=== PATIENT | female | born 1990 | race African-American/Black ===

== ENCOUNTER 2017-06-19 20:19 | Emergency (ER) | payer SELFPAY ==
[~2017-06-19] VITALS: Ht 157.5 cm; Wt 93.0 kg
[~2017-06-19 20:19] MED LIST: ACYCLOVIR400 MG PO; AMOXICILLIN500 MG PO; CIPRO500 MG PO; COLACE100 MG PO; FERROUS SULF325 M1 PO; FLAGYL500 MG OR; FLAGYL500 MG PO; FLUZONE SPLT1 M1 IM; LORTAB 7.57.5 MG PO; MACRODANTIN100 MG OR; NAPROSYN500 MG PO; NO; NORCO1 TA1 PO; PHENERGAN25 MG/TAB PO; PRENATA3 OR; PRENATAL VIT1 TAB OR; PROCARDIA10 MG PO; RHO (D) IMMUN300 MCG IM; ROCEPHIN 2250 MG/VIA IM; TAM75CAP PO; TUBERSOL5 MG/0.1 M ID; ULTRAM50 M1 PO; ZITHROMAX500 MG PO; ZOFRAN4 MG/TAB PO
[2017-06-19] MEDS ORDERED: TESSALON PER100 MG PO (20:36)
[2017-06-19] MEDS ORDERED: AFRIN 12 HOUR0.05 % (20:36)
[2017-06-19 20:45] VITALS: BP 119/78
== END 2017-06-19 20:45 | disposition home or self-care (01) | DRG 153 ==
LOC: ED 20:19
DX: J06.9 Acute upper respiratory infection, unspecified (principal); J34.89 Other specified disorders of nose and nasal sinuses; R05 Cough; R09.81 Nasal congestion; R50.9 Fever, unspecified

== ENCOUNTER 2017-12-30 17:53 | Emergency (ER) | payer OTHER ==
[~2017-12-30] VITALS: Ht 157.5 cm; Wt 91.0 kg
[~2017-12-30 17:53] MED LIST changes: +AFRIN 12 HOUR0.05 %; +TESSALON PER100 MG PO
[2017-12-30] MEDS ORDERED: FIORICET PO (20:16)
[2017-12-30 20:19] VITALS: BP 109/71
== END 2017-12-30 20:25 | disposition home or self-care (01) | DRG 103 ==
LOC: ED 17:53
DX: R51 Headache (principal)

== ENCOUNTER 2018-09-22 11:35 | Emergency (ER) | payer OTHER ==
[~2018-09-22] VITALS: Ht 157.5 cm; Wt 88.0 kg
[~2018-09-22 11:35] MED LIST changes: +FIORICET PO
[2018-09-22] MEDS ORDERED: MUSCLE RELAXER (11:46)
[2018-09-22 13:09] VITALS: BP 153/98
== END 2018-09-22 13:16 | disposition home or self-care (01) | DRG 552 ==
LOC: ED 11:35
DX: M54.5 Low back pain (principal); M54.6 Pain in thoracic spine; S39.012A Strain of muscle, fascia and tendon of lower back, initial encounter; V49.59XA Passenger injured in collision with other motor vehicles in traffic accident, initial encounter; Y92.414 Local residential or business street as the place of occurrence of the external cause

== ENCOUNTER 2020-04-12 10:57 | Emergency (ER) | payer OTHER, BC, MEDICAID ==
[~2020-04-12] VITALS: Ht 157.5 cm; Wt 145.0 kg
[~2020-04-12 10:57] MED LIST changes: +MUSCLE RELAXER
[2020-04-12] MEDS ORDERED: IBUPROFEN600 MG PO (13:04)
[2020-04-12 13:10] VITALS: BP 129/74
== END 2020-04-12 13:10 | disposition home or self-care (01) | DRG 563 ==
LOC: ED 10:57
DX: S93.402A Sprain of unspecified ligament of left ankle, initial encounter (principal); W18.39XA Other fall on same level, initial encounter; Y92.89 Other specified places as the place of occurrence of the external cause; Y99.0 Civilian activity done for income or pay

== ENCOUNTER 2020-06-30 01:12 | Emergency (ER) | payer MEDICAID ==
[~2020-06-30] VITALS: Ht 157.5 cm; Wt 100.0 kg
[~2020-06-30 01:12] MED LIST changes: +IBUPROFEN600 MG PO
[2020-06-30] MEDS ORDERED: AMOX/K CLAV875 M1 PO (01:34)
[2020-06-30 01:42] VITALS: BP 150/82
== END 2020-06-30 01:50 | disposition home or self-care (01) ==
LOC: ED 01:12
DX: H66.91 Otitis media, unspecified, right ear (principal)

== ENCOUNTER 2020-08-08 20:18 | Emergency (ER) | payer MEDICAID ==
[~2020-08-08] VITALS: Ht 157.5 cm; Wt 104.5 kg
[~2020-08-08 20:18] MED LIST changes: +AMOX/K CLAV875 M1 PO
[2020-08-08 20:58] LABS: HEMATOCRIT 37.1 % (37.0-47.0); HEMOGLOBIN 11.7 g/dl (12.0-16.0); IMMATURE GRANULOCYTES 0.1 % (0.0-5.0); MEAN CELL VOLUME 90.3 fL CALC (80.0-100.0); MEAN CORPUSCULAR HGB 28.5 pG CALC (26.0-32.0); MEAN CORPUSCULAR HGB CONC 31.5 g/dL CAL (32.0-36.0); NEUT# 3.59 thou/uL (2.00-7.15); RED BLOOD COUNT 4.11 mill/uL (4.20-5.60); RED CELL DISTRI WIDTH 13.2 % (11.5-15.5)
[2020-08-08 21:00] LABS: URINE BILIRUBIN - DIPSTICK NEGATIVE (NEGATIVE); URINE BLOOD DIPSTICK NEGATIVE (NEGATIVE); URINE COLOR YELLOW; URINE GLUCOSE - DIPSTICK NEGATIVE (NEGATIVE); URINE KETONE NEGATIVE (NEGATIVE); URINE LEUK ESTERASE NEGATIVE (NEGATIVE); URINE NITRITE - DIPSTICK NEGATIVE (Negative); URINE PROTEIN - DIPSTICK TRACE mg/dL (NEG-TRACE)
[2020-08-08 21:18] LABS: ALBUMIN 3.8 g/dL (3.2-5.0); ALKALINE PHOSPHATASE 83 u/l (38-126); AMYLASE 50 u/l (30-110); ANION GAP 9 (6-22 (CALC)); BILIRUBIN, TOTAL 0.2 mg/dL (0.0-1.4); BUN 12 mg/dL (7-17); BUN/CREATININE RATIO 14 (12-20 (CALC)); CARBON DIOXIDE 29 mmol/l (22-30); CHLORIDE 104 mmol/l (95-108); CREATININE 0.8 mg/dL (0.5-1.0); GFR > 60 ML/MIN (>=60 (CALC)); GFR FOR AFR.AMER. > 60 ML/MIN (>=60 (CALC)); LIPASE 49 u/l (23-300); POTASSIUM 3.7 mmol/l (3.5-5.1); SGOT/AST 18 u/l (14-36); SODIUM 137 mmol/l (137-146); TOTAL PROTEIN 7.1 g/dL (6.3-8.2)
[2020-08-08 22:25] VITALS: BP 113/58
[2020-08-08] MEDS ORDERED: PREVACID30 M3 PO (22:45)
[2020-08-08] MEDS ORDERED: MIRALAX17 GM PO (22:45)
== END 2020-08-08 23:25 | disposition home or self-care (01) ==
LOC: ED 20:18
PROVIDERS: Emergency Medicine
DX: K29.70 Gastritis, unspecified, without bleeding (principal); K59.00 Constipation, unspecified

== ENCOUNTER 2021-10-31 20:48 | Emergency (ER) | payer OTHER, MEDICAID ==
[~2021-10-31] VITALS: Ht 157.5 cm; Wt 94.0 kg
[~2021-10-31 20:48] MED LIST changes: +MIRALAX17 GM PO; +PREVACID30 M3 PO
[2021-10-31 21:24] LABS: HEMOGLOBIN 12.5 g/dl (12.0-16.0); IMMATURE GRANULOCYTES 0.2 % (0.0-5.0); MEAN CELL VOLUME 89.4 fL CALC (80.0-100.0); MEAN CORPUSCULAR HGB 28.7 pG CALC (26.0-32.0); MEAN CORPUSCULAR HGB CONC 32.1 g/dL CAL (32.0-36.0); NEUT# 7.94 thou/uL (2.00-7.15); RED BLOOD COUNT 4.36 mill/uL (4.20-5.60); RED CELL DISTRI WIDTH 13.5 % (11.5-15.5)
[2021-10-31 21:39] LABS: HCG SERUM/URINE (NEG/POS) NEGATIVE (NEGATIVE)
[2021-10-31 21:41] LABS: ALKALINE PHOSPHATASE 85 u/l (38-126); AMYLASE 76 u/l (30-110); ANION GAP 10 (6-22 (CALC)); BILIRUBIN, TOTAL 0.8 mg/dL (0.0-1.4); BUN 10 mg/dL (7-17); BUN/CREATININE RATIO 14 (12-20 (CALC)); CARBON DIOXIDE 22 mmol/l (22-30); CHLORIDE 109 mmol/l (95-108); CREATININE 0.7 mg/dL (0.5-1.0); GFR > 60 ML/MIN (>=60 (CALC)); GFR FOR AFR.AMER. > 60 ML/MIN (>=60 (CALC)); LIPASE 47 u/l (23-300); POTASSIUM 3.7 mmol/l (3.5-5.1); SGOT/AST 20 u/l (14-36); SODIUM 137 mmol/l (137-146); TOTAL PROTEIN 7.9 g/dL (6.3-8.2)
[2021-10-31 22:20] LABS: URINE BILIRUBIN - DIPSTICK NEGATIVE (NEGATIVE); URINE BLOOD DIPSTICK NEGATIVE (NEGATIVE); URINE COLOR YELLOW; URINE GLUCOSE - DIPSTICK NEGATIVE (NEGATIVE); URINE KETONE NEGATIVE (NEGATIVE); URINE LEUK ESTERASE NEGATIVE (NEGATIVE); URINE PH 5.5 (4.5-8.0); URINE PROTEIN - DIPSTICK NEGATIVE (NEG-TRACE); URINE UROBILINOGEN - DIPSTICK 0.2 E.U./dL (0.2)
[2021-10-31 22:22] LABS: URINE NITRITE - DIPSTICK NEGATIVE (Negative)
[2021-10-31] MEDS ORDERED: ZOFRAN4 MG/TAB PO (22:31)
[2021-10-31] MEDS ORDERED: ULTRAM50 MG PO (22:31)
[2021-10-31 22:34] VITALS: BP 139/79
== END 2021-10-31 22:43 | disposition home or self-care (01) | DRG 866 ==
LOC: ED 20:48
DX: B34.9 Viral infection, unspecified (principal); Z20.822 Contact with and (suspected) exposure to COVID-19
CPT/HCPCS: Q9967